=== PATIENT | male | born 1960 | race Caucasian/White ===

== ENCOUNTER 2021-01-05 14:49 | Inpatient (IN) | payer MEDICARE ==
[~2021-01-05] VITALS: Ht 180.3 cm; Wt 94.8 kg
[~2021-01-05 14:49] MED LIST: CELEBREX 200 M200 M1 PO; FLOMAX0.4 MG PO; LIDODERM 5%1 PATC1 TOP; NORCO 10-325 T1 EACH PO; OXYCODONE HCL 55 MG PO; PENICILLIN V P500 MG PO; RITALIN LA20 MG PO; XARELTO10 MG PO
[2021-01-05 15:02] VITALS: BP 115/90
[2021-01-05 15:48] LABS: ABSOLUTE EOSINOPHILS 0.1 thou/uL (0.0-0.7); ABSOLUTE LYMPHOCYTES 1.5 thou/uL (0.8-5.3); ABSOLUTE MONOCYTES 0.8 thou/uL (0.0-1.2); BASOPHILS 0.3 %; EOSINOPHILS 1.1 %; HEMATOCRIT 47.2 % (42.0-52.0); HEMOGLOBIN 16.5 gm/dL (14.0-18.0); LYMPHOCYTES 15.6 %; MCH 33.1 pg (26.0-34.0); MCHC 34.9 g/dL (28.0-37.0); MCV 94.9 fL (80.0-100.0); MONOCYTES 8.7 %; MPV 8.1 fl. (7.2-11.1); NUCLEATED RBCS 0 /100WBC; PLATELET COUNT* 202 thou/uL (150-400); POLYS 74.3 %; RBC 4.97 mil/uL (4.50-6.00); RDW-CV 14.5 % (10.5-14.5); WBC 9.5 thou/uL (4.0-11.0)
[2021-01-05 16:01] LABS: CALCIUM 8.8 mg/dL (8.5-10.1); POTASSIUM 4.3 mmol/L (3.5-5.1)
[2021-01-05 16:12] LABS: ALBUMIN 3.6 g/dL (3.4-5.0); TOTAL BILIRUBIN 1.4 mg/dL (<0.1-1.0); TOTAL PROTEIN 7.3 g/dL (6.4-8.2)
[2021-01-05 18:07] LABS: URINE BILIRUBIN NEGATIVE (Negative); URINE BLOOD NEGATIVE (Negative); URINE CLARITY CLEAR; URINE COLOR YELLOW; URINE GLUCOSE-RANDOM NEGATIVE (Negative); URINE KETONES NEGATIVE (Negative); URINE LEUKOCYTES-REFLEX NEGATIVE (Negative); URINE NITRITE-REFLEX NEGATIVE (Negative); URINE PROTEIN NEGATIVE (Negative); URINE SPECIFIC GRAVITY <= 1.005 (1.005-1.030); URINE UROBILINOGEN 0.2 E.U./dl (0.2-1.0)
[2021-01-05 19:46] VITALS: BP 125/65
[2021-01-06 05:08] VITALS: BP 100/72
[2021-01-06 07:30] VITALS: BP 105/83
[2021-01-06 10:20] LABS: ANION GAP < 0 mmol/L (7-16); BUN 15 mg/dL (7-18); CHLORIDE 102 mmol/L (98-107); CO2 29 mmol/L (21-32); CREATININE 1.1 mg/dL (0.6-1.3); GLUCOSE 97 mg/dL (70-99); POTASSIUM 3.9 mmol/L (3.5-5.1); SODIUM 130 mmol/L (136-145)
[2021-01-06 10:23] LABS: MAGNESIUM 2.1 mg/dL (1.8-2.4); PHOSPHORUS* 2.9 mg/dL (2.5-4.9)
--- NOTE | 2021-01-06 10:43 | EKG ---
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1960 Requested By: Mikala Potter Order Number: [id number] MD: Homero Allan Measurements Intervals [place] Rate: 132 P: [place]: QRS: 44 QRSD: 89 T: 56 QT: 292 QTc: 433 Interpretive Statements Atrial fibrillation Ventricular premature complex Left ventricular hypertrophy Baseline wander in lead(s) II,III,aVF,V2 Compared to ECG 12/25/2016 08:57:52 Ventricular premature complex(es) now present Sinus rhythm no longer present Electronically Signed On 01-06-2021 10:43:11 CDT by Homero Allan [email or web address] <ELECTRONICALLY SIGNED> By: Homero Allan MD, [facility] 01/06/21 1043 1539 1539 Homero Allan MD, [facility] /EPI
--- NOTE | 2021-01-06 10:46 | EKG ---
[place] [address] ELECTROCARDIOGRAM REPORT Name: ARIEL FOSTER I Room: [address] ADM IN .R.#: [id number] Admission: 01/05/21 Attend Phys: Inocencio Smith Discharge: Date of : 64 Date of Service: 01/05/211852 Report #: [id number] THIS REPORT FOR: //name// [facility] ED Test Date: 2021-01-05 Test Time: 18:53:16 Pat Name: ARIEL FOSTER Department: Room: 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 : 1960 Requested By: Mikala Potter Order Number: [id number] MD: Homero Allan Measurements Intervals [place] Rate: 111 P: [place]: QRS: 8 QRSD: 86 T: 44 QT: 311 QTc: 423 Interpretive Statements Atrial fibrillation Ventricular premature complex Consider left ventricular hypertrophy Compared to ECG 01/05/2021 15:39:06 No significant changes Electronically Signed On 01-06-2021 10:46:00 CDT by Homero Allan [email or web address] <ELECTRONICALLY SIGNED> By: Homero Allan MD, [facility] 01/06/21 1046 1853 1853 Homero Allan MD, [facility] /EPI
[2021-01-06 12:00] VITALS: BP 96/72
[2021-01-06 16:00] VITALS: BP 107/63
[2021-01-06 20:00] VITALS: BP 110/65
[2021-01-06 23:53] VITALS: BP 104/63
[2021-01-07 04:09] LABS: ABSOLUTE BASOPHILS 0.1 thou/uL (0.0-0.2); ABSOLUTE EOSINOPHILS 0.1 thou/uL (0.0-0.7); ABSOLUTE LYMPHOCYTES 1.7 thou/uL (0.8-5.3); ABSOLUTE MONOCYTES 0.9 thou/uL (0.0-1.2); ABSOLUTE NEUTROPHILS 7.6 thou/uL (1.6-8.1); BASOPHILS 0.5 %; HEMATOCRIT 47.5 % (42.0-52.0); HEMOGLOBIN 16.4 gm/dL (14.0-18.0); LYMPHOCYTES 16.3 %; MCH 32.7 pg (26.0-34.0); MCHC 34.6 g/dL (28.0-37.0); MCV 94.6 fL (80.0-100.0); MONOCYTES 8.7 %; MPV 8.1 fl. (7.2-11.1); NUCLEATED RBCS 0 /100WBC; PLATELET COUNT* 206 thou/uL (150-400); POLYS 73.5 %; RBC 5.02 mil/uL (4.50-6.00); RDW-CV 14.3 % (10.5-14.5); WBC 10.3 thou/uL (4.0-11.0)
[2021-01-07 04:34] LABS: CREATININE 1.2 mg/dL (0.6-1.3); POTASSIUM 4.1 mmol/L (3.5-5.1); TROPONIN-I LEVEL 0.23 ng/mL (<0.06)
[2021-01-07 04:59] VITALS: BP 100/79
[2021-01-07 07:41] VITALS: BP 106/81
[2021-01-07 08:04] LABS: CHOLESTEROL 153 mg/dL (<200); HDL CHOLESTEROL 37 mg/dL (>40); LDL CHOLESTEROL 106 mg/dL (<100); TC:HDL 4.1 Ratio (Not establshd); TRIGLYCERIDE 50 mg/dL (<150); VLDL 10 mg/dL (<40)
[2021-01-07 08:08] LABS: SERUM ASSESSMENT Clear
[2021-01-07 11:48] VITALS: BP 101/49
--- NOTE | 2021-01-07 13:01 | 2DMMODE ---
[place] [address] 2 D/M-MODE ECHOCARDIOGRAM Name: ARIEL FOSTER I Room: [address] IN [facility]#: [id number] Admission: 01/05/21 Attend Phys: Inocencio Smith Discharge: Date of : 64 Date of Service: 01/07/21 1300 Report #: [id number] THIS REPORT FOR: cc: Edwin Powell MD, Bruce D. MD Holkins, John M. MD [facility] ~ APPROVED REPORT Study performed: 01/07/2021 10:00:35 EXAM: Comprehensive 2D, Doppler, and color-flow Echocardiogram Patient Location: In-Patient Room #: [facility] Status: routine BSA: 2.14 HR: 103 bpm BP: 106/81 mmHg Rhythm: Atrial Fibrillation Other Information Study Quality: Good Indications Atrial Fibrillation 2D Dimensions IVSd: 13.03 (7-11mm) LVOT Diam: 23.06 (18-24mm) LVDd: 64.21 mm PWd: 10.68 (7-11mm) Ascending Ao: 35.93 (22-36mm) LVDs: 54.00 (25-40mm) Aortic Root: 37.53 mm Volumes Left Atrial Volume (Systole) LA ESV Index: 53.90 mL/m2 Aortic Valve AoV Peak Checo.: 0.98 m/s AO Peak Gr.: 3.81 mmHg LVOT Max P.77 mmHg AO Mean Gr.: 2.44 mmHg LVOT Mean P.56 mmHg LVOT Max V: 0.83 m/s AO V2 VTI: 14.33 cm LVOT Mean V: 0.57 m/s PRINCESS (VTI): 3.58 cm2 LVOT V1 VTI: 12.29 cm AI Liberty: 1.81 m/s2 [place] [address] 2 D/M-MODE ECHOCARDIOGRAM Name: ARIEL FOSTER I Room: [address] [place] [facility].#: [id number] Admission: 01/05/21 Attend Phys: Inocencio Smith Discharge: Date of : 64 Date of Service: 01/07/21 1300 Report #: [id number] PHT: 561.69 ms TDI Medial E' Checo.: 0.15 m/s Lateral E' Checo.: 0.16 m/s Pulmonary Valve PV Peak Checo.: 1.18 m/s PV Peak Gr.: 5.56 mmHg Tricuspid Valve RAP Estimate: 5.00 mmHg TR Peak Gr.: 30.25 mmHg RVSP: 35.00 mmHg PA Pressure: 35.00 mmHg Left Ventricle The left ventricle is normal size. There is diffuse hypokinesis of left ventricular wall motion. There is normal left ventricular wall thickness. Left ventricular systolic function is severely decreased. LVEF is 25-30%. This study is not technically sufficient to allow evaluation of the LV diastolic function due to atrial fibrillation. Right Ventricle The right ventricle is normal size. The right ventricular systolic function is normal. Atria Left atrium is moderately dilated. The right atrium size is normal. Aortic Valve Mild aortic valve sclerosis. Mild aortic regurgitation. There is no aortic valvular stenosis. Mitral Valve The mitral valve is normal in structure. Moderate mitral regurgitation. No evidence of mitral valve stenosis. Tricuspid Valve The tricuspid valve is normal in structure. Mild tricuspid regurgitation. Mild pulmonary hypertension. Pulmonic Valve The pulmonary valve is normal in structure. [place] [address] 2 D/M-MODE ECHOCARDIOGRAM Name: ARIEL FOSTER I Room: [address] IN ..#: [id number] Admission: 01/05/21 Attend Phys: Inocencio Smith Discharge: Date of : 64 Date of Service: 01/07/21 [facility] Report #: [id number] Great Vessels The aortic root is normal in size. IVC is normal in size and collapses >50% with inspiration. Pericardium There is no pericardial effusion. <Conclusion> The left ventricle is normal size. There is normal left ventricular wall thickness. Left ventricular systolic function is severely decreased. LVEF is 25-30%. This study is not technically sufficient to allow evaluation of the LV diastolic function due to atrial fibrillation. The right ventricle is normal size. Left atrium is moderately dilated. The right atrium size is normal. Mild aortic valve sclerosis. Mild aortic regurgitation. There is no aortic valvular stenosis. The mitral valve is normal in structure. Moderate mitral regurgitation. The tricuspid valve is normal in structure. Mild tricuspid regurgitation. Mild pulmonary hypertension. IVC is normal in size and collapses >50% with inspiration. There is no pericardial effusion. There is diffuse hypokinesis of left ventricular wall motion. <ELECTRONICALLY SIGNED> By: Aj Majano MD, FACC 01/07/21 1300 1300 1300 Aj Majano MD, FACC /INF
--- NOTE | 2021-01-07 13:50 | EKG ---
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 : 1960 Requested By: Inocencio Smith Order Number: [id number] Alexis MD: Aj Majano Measurements Intervals [place] Rate: 74 P: [place]: QRS: 16 QRSD: 97 T: 51 QT: 391 QTc: 434 Interpretive Statements Atrial fibrillation Borderline T abnormalities, anterior leads Baseline wander in lead(s) V1,V3 Compared to ECG 01/05/2021 18:53:16 T-wave abnormality now present Ventricular premature complex(es) no longer present Electronically Signed On 01-07-2021 13:50:18 CDT by Aj Majano [email or web address] <ELECTRONICALLY SIGNED> By: Aj Majano MD, [facility] 01/07/21 1350 0950 0950 Aj Majano MD, [facility] /EPI
--- NOTE | 2021-01-07 14:01 | EKG ---
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 : 1960 Requested By: Adamaris Onofre Order Number: [id number] Reading MD: Aj Majano Measurements Intervals [place] Rate: 91 P: [place]: QRS: 30 QRSD: 142 T: 61 QT: 365 QTc: 450 Interpretive Statements Atrial fibrillation Ventricular premature complex Probable left ventricular hypertrophy Compared to ECG 01/06/2021 09:50:32 Ventricular premature complex(es) now present T-wave abnormality no longer present Electronically Signed On 01-07-2021 14:00:55 CDT by Aj Majano [email or web address] <ELECTRONICALLY SIGNED> By: Aj Majano MD, [facility] 01/07/21 1400 0932 0932 Aj Majano MD, [facility] /EPI
[2021-01-07 16:25] VITALS: BP 123/66
[2021-01-07 23:25] VITALS: BP 117/69
[2021-01-08] VITALS (13 sets, daily range): BP systolic 90–121; BP diastolic 55–83
[2021-01-08 05:37] LABS: ALBUMIN 3.6 g/dL (3.4-5.0); CALCIUM 9.1 mg/dL (8.5-10.1); CREATININE 1.3 mg/dL (0.6-1.3); POTASSIUM 4.3 mmol/L (3.5-5.1); TOTAL PROTEIN 7.6 g/dL (6.4-8.2)
[2021-01-08] MEDS ORDERED: XARELTO20 MG PO (12:12)
[2021-01-08] MEDS ORDERED: LORAZEPAM 0.50.5 MG PO (12:17)
[2021-01-08] MEDS ORDERED: METOPROLOL SUCC25 M1 PO (12:17)
[2021-01-08] MEDS ORDERED: SPIRONOLACTONE25 MG PO (12:17)
[2021-01-08] MEDS ORDERED: PACERONE 200 M200 M1 PO (12:17)
--- NOTE | 2021-01-08 13:03 | TEE ---
[place] [address] TRANSESOPHAGEAL ECHOCARDIOGRAM Name: JUANJOSEROSIOARIEL Dottie Room: [address] IN [facility]#: [id number] Admission: 01/05/21 Attend Phys: Inocencio Smith Discharge: Date of : 64 Date of Service: 01/08/21 1302 Report #: [id number] THIS REPORT FOR: cc: Edwin Powell MD, Bruce D. MD Liston, Michael J. MD [facility] ~ APPROVED REPORT Study performed: 01/08/2021 10:33:50 EXAM: Transesophageal Echocardiogram Patient Location: In-Patient Room #: [facility] Status: routine BSA: 2.15 HR: 95 bpm BP: 101/80 mmHg Rhythm: NSR Other Information Study Quality: Good Indications Atrial Fibrillation Echo Enhancing Agent Indication: Rule out Shunt Agent(s) / Amount(s) Used: Agitated Saline 10 cc Procedure After obtaining informed consent, patient underwent transesophageal echo in the [employer]. Type of Sedation : General Anesthesia Sedation was administered by Anesthesiologist. Sedation start time: 1134 Case end Time: 1147 Sedation was achieved intravenously with: Propofol (160) Transesophageal probe was inserted and advanced into esophagus without difficulty by Rubio Mansfield MD, FACC. Echo enhancement indication: R/O Septal defect. Echo enhancement agent administered: Agitated Saline The OMKAR was performed without complications. Synchronized Cardioversion acheived with 360 Joules after 1 attempt([place] [address] TRANSESOPHAGEAL ECHOCARDIOGRAM Name: ARIEL FOSTER I Room: [address] IN ..#: [id number] Admission: 01/05/21 Attend Phys: Inocencio Smith Discharge: Date of : 64 Date of Service: 01/08/21 1302 Report #: [id number] Rhythm following Synchronized Cardioversion: Sinus Tachycardia Throughout the procedure, the blood pressure, pulse oximetry, cardiac rhythm, and rate were monitored. The patient tolerated the procedure without adverse effects. Recovery from conscious sedation was uneventful and vital signs were stable. Left Ventricle The left ventricle is normal size. There is mild global hypokinesis of the left ventricle. There is normal left ventricular wall thickness. Left ventricular systolic function is mildly decreased. LVEF is 40-45%. Right Ventricle The right ventricle is normal size. The right ventricular systolic function is normal. Atria The left atrium size is normal. No thrombus is visualized in the left atrium or appendage. The interatrial septum is intact with no evidence for an atrial septal defect. The right atrium size is normal. Aortic Valve The aortic valve is normal in structure. Trace aortic regurgitation. There is no aortic valvular stenosis. Mitral Valve The mitral valve is normal in structure. Moderate mitral regurgitation. No evidence of mitral valve stenosis. Tricuspid Valve The tricuspid valve is normal in structure. Mild tricuspid regurgitation. Pulmonic Valve The pulmonary valve is normal in structure. There is no pulmonic valvular regurgitation. Great Vessels The aortic root is normal in size. Pericardium There is no pericardial effusion. <Conclusion> [place] [address] TRANSESOPHAGEAL ECHOCARDIOGRAM Name: ARIEL FOSTER Dtotie Room: [address]#: [id number] Admission: 01/05/21 Attend Phys: Inocencio Smith Discharge: Date of : 64 Date of Service: 01/08/21 1302 Report #: [id number] The left ventricle is normal size. There is normal left ventricular wall thickness. Left ventricular systolic function is mildly decreased. LVEF is 40-45%. There is mild global hypokinesis of the left ventricle. The interatrial septum is intact with no evidence for an atrial septal defect. No thrombus is visualized in the left atrium or appendage. Trace aortic regurgitation. Moderate mitral regurgitation. Mild tricuspid regurgitation. <ELECTRONICALLY SIGNED> By: Rubio Mansfield MD, [facility] 01/08/21 1302 130 1302 Rubio Mansfield MD, FACC /INF
--- NOTE | 2021-01-08 14:07 | EKG ---
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: : 1960 Requested By: Adamaris Onofre Order Number: [id number] Reading MD: Aj Majano Measurements Intervals [place] Rate: 97 P: [place]: QRS: -2 QRSD: 95 T: 27 QT: 387 QTc: 492 Interpretive Statements Atrial fibrillation with moderately frequent PVCs Probable left ventricular hypertrophy Compared to ECG 01/07/2021 09:32:41 Ventricular premature complex(es) persist Electronically Signed On 01-08-2021 14:07:41 CDT by Aj Majano [email or web address] <ELECTRONICALLY SIGNED> By: Aj Majano MD, [facility] 01/08/21 1407 0839 0839 Aj Majano MD, [facility] /EPI
--- NOTE | 2021-01-08 14:11 | EKG ---
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 : 1960 Requested By: Adamaris Onofre Order Number: [id number] Alexis MD: Aj Majano Measurements Intervals [place] Rate: 90 P: 52 IN: 200 QRS: 29 QRSD: 93 T: 60 QT: 362 QTc: 443 Interpretive Statements Sinus rhythm LAE, consider biatrial enlargement Compared to ECG 01/08/2021 08:39:00 Rhythm has reverted from atrial fibrillation to sinus and PVCs are no longer noted Electronically Signed On 01-08-2021 14:11:14 CDT by Aj Majano [email or web address] <ELECTRONICALLY SIGNED> By: Aj Majano MD, [facility] 01/08/21 1411 1210 1210 Aj Majano MD, [facility] /EPI
[2021-01-08] MEDS ORDERED: FUROSEMIDE 40 M40 MG PO (14:56)
== END 2021-01-08 16:55 | disposition home or self-care (01) | DRG 177 ==
LOC: M.ERS 14:49 → M.TBA-ER 17:21 → M.2W 17:21
PROVIDERS: Nurse Practitioner Family; Registered Nurse; ADMIT Internal Medicine; ATTEND Internal Medicine
PROC: B24BZZ4 Ultrasonography of Heart with Aorta, Transesophageal (ICD-10-PCS; principal; 2021-01-08)
DX: J15.6 Pneumonia due to other Gram-negative bacteria (principal); I50.43 Acute on chronic combined systolic (congestive) and diastolic (congestive) heart failure; I48.20 Chronic atrial fibrillation, unspecified; I42.8 Other cardiomyopathies; D68.8 Other specified coagulation defects; F95.2 Tourette's disorder; F41.9 Anxiety disorder, unspecified; F17.200 Nicotine dependence, unspecified, uncomplicated; Z20.822 Contact with and (suspected) exposure to COVID-19; Z79.01 Long term (current) use of anticoagulants; Z79.899 Other long term (current) drug therapy; Z86.16 Personal history of COVID-19

== ENCOUNTER → 2021-01-17 | Outpatient (CLI) | payer MEDICARE ==
[~2021-01-17] MED LIST changes: +FUROSEMIDE 40 M40 MG PO; +LORAZEPAM 0.50.5 MG PO; +METOPROLOL SUCC25 M1 PO; +PACERONE 200 M200 M1 PO; +SPIRONOLACTONE25 MG PO; +XARELTO20 MG PO
[2021-01-17 10:28] LABS: ALBUMIN 3.8 g/dL (3.4-5.0); CALCIUM 8.6 mg/dL (8.5-10.1); CREATININE 1.2 mg/dL (0.6-1.3); POTASSIUM 4.8 mmol/L (3.5-5.1); TOTAL BILIRUBIN 0.6 mg/dL (<0.1-1.0); TOTAL PROTEIN 7.5 g/dL (6.4-8.2)
== END ==
LOC: M.LAB 09:25
PROVIDERS: ATTEND Registered Nurse
DX: I50.42 Chronic combined systolic (congestive) and diastolic (congestive) heart failure (principal)

== ENCOUNTER → 2021-02-14 | Outpatient (CLI) | payer MEDICARE | LOC: M.RAD 11:02 | PROVIDERS: ATTEND Registered Nurse | DX: R05 Cough (principal); R06.00 Dyspnea, unspecified; Z87.891 Personal history of nicotine dependence ==